=== PATIENT | male | born 1990 | race Caucasian/White ===

== ENCOUNTER → 2021-10-17 | Outpatient (CLI) | payer OTHER ==
[2021-10-17 13:19] LABS: HEMOGLOBIN 16.6 gm/dl (14.0-17.5); RED BLOOD COUNT 5.47 M/UL (4.20-5.50); WHITE BLOOD COUNT 5.2 K/UL (4.5-11.0)
[2021-10-17 13:48] LABS: BUN/CREATININE RATIO 15 (0-10)
[2021-10-18 07:11] LABS: VITAMIN D, 25-HYDROXY 30.5 ng/mL (30.0-100.0)
[2021-10-18 08:15] LABS: TESTOSTERONE, SERUM 401 ng/dL (264-916)
== END ==
LOC: LAB 09:07
DX: R53.83 Other fatigue (principal); Z13.9 Encounter for screening, unspecified
CPT/HCPCS: 36415; 80053; 80061; 82607; 82746; 83036; 83540; 83550; 83690; 84153; 84403; 84439; 84443; 85025